=== PATIENT | female | born 1950 | race Caucasian/White ===

== ENCOUNTER 2017-02-20 12:00 | Emergency (ER) | payer OTHER, BC ==
[~2017-02-20] VITALS: Ht 162.6 cm; Wt 47.0 kg
[2017-02-20 12:03] VITALS: BP 154/98; PULSE 77; TEMP 36.7; O2SAT 100; Ht 162.6 cm; Wt 47.0 kg
[2017-02-20] MEDS ORDERED: ZOLP5TAB PO (12:19)
[2017-02-20] MEDS ORDERED: DOXY100C76 PO (12:19)
[2017-02-20] MEDS ORDERED: LISI20TA3 PO (12:19)
[2017-02-20] MEDS ORDERED: ESCI10TA17 PO (12:19)
[2017-02-20] MEDS ORDERED: RTL20 PO (12:19)
[2017-02-20] MEDS ORDERED: MONT1TAB5 PO (12:19)
[2017-02-20] MEDS ORDERED: ABL/5 PO (12:19)
[2017-02-20] MEDS ORDERED: VNTHFA/IN INH (12:20)
[2017-02-20] MEDS ORDERED: BUDE1SUS8 NAE (12:20)
--- NOTE | 2017-02-20 12:35 | EMERGENCY ROOM VISIT NOTE ---
ED Visit Note First contact with patient: 12:09 CHIEF COMPLAINT: Possible needle stick to the right hand. HISTORY OF PRESENT ILLNESS: This 66-year-old female who works at [employer] was something out of the garbage and a large needle pricked her rt hand. She saw 2 small droplets of blood on her hand. She was unsure if it came from the needle from her hand. She washed her hand with water.. REVIEW OF SYSTEMS: 6 system review was performed and was negative unless stated otherwise in history of present illness. PMH: The patient is healthy; hypertension, COPD, thyroid cancer, thyroidectomy SOCIAL HISTORY: Patient admits to tobacco use and occasional alcohol use. PHYSICAL EXAM: Vital Signs: Were reviewed Reviewed Nurse's notes. GENERAL: 66- year-old white female appears in no acute distress. MENTAL Status: Alert and oriented 3. RIGHT HAND: The right hand was examined under a magnifying glass and no open wounds or punctures in the skin was noted. EMERGENCY DEPARTMENT COURSE: The patient was evaluated. I reassured the patient that I do not see any skin breaks in the skin therefore there was no need for any treatment. The patient was in agreement. DIAGNOSIS: Possible needle stick right hand DISCHARGE INSTRUCTIONS: No further treatment necessary Current/Historical Medications Scheduled Albuterol Hfa (Ventolin Hfa), 2 PUFFS INH Q6H Aripiprazole (Abilify), 5 MG PO DAILY Budesonide (Nasal) (Rhinocort Allergy), 1 SPRAY TEJ DAILY Doxycycline Monohydrate (Monodox), 20 MG PO BID Escitalopram (Lexapro), 10 MG PO DAILY Lisinopril (Prinivil), 20 MG PO DAILY Methylphenidate (Ritalin), 20 MG PO TID Montelukast Sodium (Montelukast Sodium), 10 MG PO HS Zolpidem Tartrate (Ambien), 5 MG PO HS Allergies Coded Allergies: Nickel (Unverified Allergy, Unknown, SKIN RASH, 02/20/17) Sulfa Antibiotics (Unverified Allergy, Unknown, LIP SWELLING/BLISTERED, 01/26) Vital Signs Date Time Temp Pulse Resp B/P (MAP) Pulse Ox O2 Delivery O2 Flow Rate FiO2 02/20/17 12:03 36.7 77 16 154/98 100 Departure Information Impression Primary Impression: possible needle stick Dispostion Home / Self-Care Condition GOOD Forms WORK / SCHOOL INSTRUCTIONS, HOME CARE DOCUMENTATION FORM, IMPORTANT VISIT INFORMATION Patient Instructions My [facility] Additional Instructions No open wounds were identified on your hand therefore no further treatment is necessary.
== END 2017-02-20 12:28 | disposition home or self-care (01) ==
LOC: C.EDB 12:02 → C.EDD 12:28
DX: Z77.21 Contact with and (suspected) exposure to potentially hazardous body fluids (principal); I10 Essential (primary) hypertension; J44.9 Chronic obstructive pulmonary disease, unspecified; F17.200 Nicotine dependence, unspecified, uncomplicated